=== PATIENT | male | born 1985 | race Caucasian/White ===

== ENCOUNTER 2018-07-13 09:37 | Outpatient (CLI) | payer OTHER, SELFPAY ==
[2018-07-13 11:33] LABS: Cholesterol 277 mg/dL (50-200); Glucose 94 mg/dL (70-100); HDL Cholesterol 43 mg/dL (40-60); LDL CHOLESTEROL 209 mg/dL (<100); Triglyceride 141 mg/dL (30-150)
== END 2018-07-13 09:57 ==
PROVIDERS: PCP Family Medicine; Visit Provider Family Medicine
DX: Z00.00 Encounter for general adult medical examination without abnormal findings (principal)
CPT/HCPCS: 36415; 80061; 82947; 83721

== ENCOUNTER 2019-03-13 16:59 | Emergency (ER) | payer OTHER, SELFPAY ==
[2019-03-13 17:25] VITALS: BP 147/105; PULSE 109; RESP 16; TEMP 36.5; O2SAT 96
--- NOTE | 2019-03-13 17:27 | W.ED.GENAD ---
Discharge Plan Disposition Patient Disposition: HOME Condition: Good Discharge Details Chief Complaint: Sorethroat Clinical Impression: URI (upper respiratory infection), Pharyngitis Primary Care Provider: Michael Woods ED Provider: Elliott Fernandez Home Meds and New Rx's Prescriptions: No Action No Known Home Meds RF: 0 Discharge Instructions Instructions: Pharyngitis (ED) Additional Instructions: Your strep test is negative. I suspect the cause of your sore throat and symptoms are most likely a virus. Please make sure to be drinking plenty fluids throughout the day, take Tylenol Motrin as needed for pain. If you notice any worsening of your symptoms, or any new symptoms such as vomiting, diarrhea, fever, chills, shortness of breath, chest pain, numbness, weakness, or fainting , please return immediately to the emergency department for reevaluation. Please follow up with your primary care provider as soon as possible for reassessment and reevaluation. As always, it was a pleasure participating in your medical care today. Referrals: Michael Woods. [Primary Care Provider] - Medical Decision Making This is a pleasant 33-year-old male with no significant past medical history who presents today for evaluation of sore throat for the last 2 to 3 days. No concerning red flags of headache or neck pain, no clinical evidence of meningitis. Mild tonsillar exudates are noted. No significant cervical lymphadenopathy, no evidence of peritonsillar abscess. We will evaluate for strep, and reassess. [place] is on the differential but notably less likely due to the absence of significant fatigue. 5:51 PM Strep test is negative. Suspect viral upper respiratory infection. Recommend Tylenol, Motrin fluids. Discussed red flags which to return. I have extensively reviewed the treatment plan and discharge instructions with the patient. I have addressed all patient concerns at this time. The patient was made aware of what symptoms to monitor for that would warrant a return to the emergency department. Discussed the plan with the patient, they demonstrate verbal understanding and agreement with our assessment and plan at this time. HPI General Date/Time Provider Initiated Documentation: 03/13/19 16:59. HPI Narrative: This is a 33-year-old male with no significant past medical history who presents for evaluation of sore throat. Patient states that for the last 2 to 3 days he has had a mild sore throat, achiness, fatigue. Throat pain has been worsening over the last 24 hours. He denies any headache, chest pain, shortness of breath. Multiple other sick contacts at home with similar symptoms. He denies any recorded temperature but does state that he felt warm. He has no other complaints at this time. No other modifying factors. No severe debilitating fatigue or abdominal pain. Related Data Home Medications Medication Instructions Recorded Confirmed Unknown [No Known Home Meds] 04/13/18 03/13/19 Allergies Allergy/AdvReac Type Severity Reaction Status Date / Time No Known Allergies Allergy Verified 03/13/19 17:28 General Stated Complaint: Sorethroat SHAHEED: 4 Review of Systems Review of Systems All systems reviewed & are unremarkable except as noted in HPI and below PFSH Surgical History (Updated 05/02/18 @ 14:35 by [employer] [place]) Tooth extraction WISDOM TEETH REMOVAL Vasectomy Family History Father Diabetes Paternal Grandfather Heavy smoker Cardiac abnormality Maternal Grandmother Heart failure Daughter No problems noted. Daughter No problems noted. Social History (Updated 07/16/18 @ 12:01 by Maria Ines Goldstein) Smoking/Tobacco Use Status: Former Tobacco Use Alcohol Intake: current Alcohol Intake frequency: a few times a week Alcohol type: beer Substance use type: does not use What type of physical activity do you participate in: walking and bicycling Duration: < 15 minutes/day Frequency: 1-2 times per week Special raimundo needs: No Do you feel safe at home: Yes Do you feel safe in your relationship?: Yes Exam Narrative Exam Narrative: 1.Const: Well-nourished, Well-developed, appearing stated age 2.Eyes: PERRL, no conjunctival injection, and symmetrical lids. 3.ENT: Atraumatic external nose and ears. Moist MM. Neck: Symmetric, trachea midline, No thyromegaly. Patient demonstrates good movement of cervical neck. There is no nuchal rigidity, no nuchal tenderness. Patient is able to flex the neck without any difficulty or significant pain. Negative Kernig's and Brudzinski sign. Mild erythema in the posterior oropharynx, small amounts of tonsillar exudates noted primarily on the right tonsil. 4.CVS: +S1/S2, No murmurs or gallops. Peripheral pulses 2+ and equal in all extremities. Brisk capillary refill in all extremities. 5.RESP: Unlabored respiratory effort. Clear to auscultation bilaterally. No wheezes rales or rhonchi 6.GI: Soft, Nontender/Nondistended, No hepatosplenomegaly. No guarding or rebound. 7.MSK: Normocephalic/Atraumatic, Extremities w/o deformity or ttp No cyanosis or clubbing, Normal movement of all extremities 8.Skin: Warm, Dry. No rashes or lesions. 9.Neuro: honey extractor II-XII grossly intact. Sensation grossly intact, no focal neurologic deficits. 10.Psych: (AAO) x3. Appropriate mood and affect Course Vital Signs Temperature 36.5 C 03/13/19 17:25 Pulse 109 H 03/13/19 17:25 Respiratory Rate 16 03/13/19 17:25 Blood Pressure 147/105 H 03/13/19 17:25 Pulse Oximetry 96 03/13/19 17:25 Temperature 36.5 C 03/13/19 17:25 Temperature Source Skin 03/13/19 17:25 Pulse 109 H 03/13/19 17:25 Respiratory Rate 16 03/13/19 17:25 Blood Pressure 147/105 H 03/13/19 17:25 Blood Pressure Position Sitting 03/13/19 17:25 Pulse Oximetry 96 03/13/19 17:25 Oxygen Delivery Method Room Air 03/13/19 17:25 Oxygen Flow Rate 0 03/13/19 17:25 Pain Level 5 03/13/19 17:25
[2019-03-13 17:53] VITALS: BP 147/105; PULSE 109; RESP 16; TEMP 36.5; O2SAT 96
== END 2019-03-13 17:57 | disposition home or self-care (01) ==
PROVIDERS: Emergency Provider Student in an Organized Health Care Education/Training Program; PCP Family Medicine
DX: J06.9 Acute upper respiratory infection, unspecified (principal); J02.8 Acute pharyngitis due to other specified organisms
CPT/HCPCS: 87880; 99282; 87081

== ENCOUNTER 2020-05-26 01:41 | Outpatient (CLI) | payer OTHER, SELFPAY ==
[2020-05-26 12:28] LABS: CREATININE 0.94 mg/dL (0.70-1.30); Potassium 4.6 mmol/L (3.5-5.1)
== END 2020-05-26 02:01 ==
PROVIDERS: Nurse Practitioner; PCP Family Medicine
DX: I10 Essential (primary) hypertension (principal)
CPT/HCPCS: 36415; 82565; 84132

== ENCOUNTER 2020-11-25 02:58 | Outpatient (CLI) | payer OTHER, BC, SELFPAY ==
[2020-11-25 13:15] LABS: Calculated LDL 181 mg/dL (<100); Cholesterol 245 mg/dL (<200); Glucose 89 mg/dL (74-106); HDL Cholesterol 41 mg/dL (40-60); Triglyceride 115 mg/dL (<150)
== END 2020-11-25 02:59 | disposition home or self-care (01) ==
LOC: LOS 02:59
PROVIDERS: PCP Family Medicine; Visit Provider Family Medicine
DX: E78.5 Hyperlipidemia, unspecified (principal); R73.9 Hyperglycemia, unspecified
CPT/HCPCS: 36415; 80061; 82947

== ENCOUNTER 2020-12-12 08:58 | Emergency (ER) | payer OTHER, BC, SELFPAY ==
--- NOTE | 2020-12-12 09:00 | W.ED.GENAD ---
Discharge Plan Disposition Patient Disposition: HOME Condition: Stable Discharge Details Clinical Impression: Fever, Nausea and vomiting Primary Care Provider: Michael Woods. ED Provider: Celina Gonzalez Home Meds and New Rx's Prescriptions: New ciprofloxacin HCl [Cipro] 500 mg tablet 500 mg PO BID 7 Days Qty: 14 RF: 0 metronidazole [Flagyl] 500 mg tablet 500 mg PO TID 7 Days Qty: 21 RF: 0 prochlorperazine maleate [Compazine] 10 mg tablet 10 mg PO TID PRN (Reason: nausea and vomiting) Qty: 7 RF: 0 Continued lisinopril 20 mg tablet 20 mg PO DAILY Qty: 90 RF: 3 Discharge Instructions Instructions: Fever in Adults (ED), Acute Nausea and Vomiting (ED) Additional Instructions: At this point in time, your fever and vomiting may be due to a foodborne illness. Usually you experience diarrhea with this, so be sure to drink lots of fluids and get plenty of rest. Your prescriptions have been sent electronically to your pharmacy. Call the pharmacy to make sure your prescriptions are ready before pickup. Take the prescriptions as directed. Your blood work today noted that your sodium level was low. This could be due to your lisinopril, so it is advised that you have your sodium level rechecked and to discuss with your primary care doctor if you should switch to a different blood pressure medication. Your blood work and CAT scan also noted that you had some evidence of fatty liver. Fatty liver in general is usually due to excess calories, high cholesterol, alcohol use, etc. Be sure to eat a healthy balanced diet. Follow-up with your primary care doctor for recheck of your liver enzymes. Return to the emergency department with any worsening or new concerning symptoms if you develop persistent fevers, persistent vomiting, abdominal pain or any other concerns. Discharge Data Discharge Date/Time-TO BE ENTERED AT DEPARTURE: 12/12/20 13:21 Discharge Physician: Celina Gonzalez Medical Decision Making 09 -- 35-year-old male with a previous history of food poisoning presents with nausea and vomiting for the past few days. Denies any abdominal pain. Heart rate on arrival 130s, decreased to 103 on recheck. Afebrile here. Patient appears comfortable and nontoxic. His abdomen is soft and nontender. Differential diagnosis includes gastroenteritis, gastritis, peptic ulcer. Do not see an indication for imaging at this time as he has no complaint of pain and abdomen nontender. Will place an IV, obtain screening labs, give a bolus IV fluids, Pepcid, Zofran IV and GI cocktail reassess. 1100 -- Labs reviewed. Normal white blood cell count. Bands 8. Sodium 127. Chloride 96. AST minimally elevated at 56. ALT minimally elevated at 94. Lipase normal. Patient reassessed and he states his nausea is improved and he feels generally better but complains of some mild headache. Recheck temp 100.7. Pulse 104. Will give a dose of Toradol, another liter of IV fluids and check a Covid swab. Case discussed with hospitalist Dr. Tai regarding Bands of 8 and whether would require admission - considering patient's pain and fever, recommends a CT scan. The fact that patient is improving, likely would not require admission but can be treated with PO cipro/flagyl if no other acute findings on CT and symptoms improve. Also recommends switching his lisinopril to another antihypertensive due to his hyponatremia. 1230 -- CT notes diffuse fatty infiltration of the liver with tiny esophageal hiatal hernia but no other acute findings. Covid negative. Patient reassessed and he feels much better and feels good to go home. Recheck temp is 99.3. Recheck heart rate mid to high 90s. Patient appears much improved. He was able to drink fluids and eat crackers without any further vomiting. Discussed that although he has no diarrhea, in the setting of symptoms started after eating food associated with fever and vomiting, will treat for potential foodborne illness. Disposition decision made weighing the risks and benefits of hospitalization versus outpatient treatment, the risk for further decompensation, and the patient's wishes. He is advised to return here immediately with any worsening symptoms for reevaluation. Also discussed recommendation to switch his lisinopril to a different antihypertensive but he is declining and states he will follow up with his primary care doctor for this. Advised to follow-up with his primary care doctor for reevaluation and for recheck of his sodium and liver enzymes. Medical Records Medical records reviewed: Yes I reviewed the patient's medical records. Imaging Data Radiologic Study: Radiologist's impression: CT Abdomen And Pelvis With Contrast Exam date and time: 12/12/2020 11:28 AM Age: 35 years old Clinical indication: Vomiting TECHNIQUE: Imaging protocol: Computed tomography of the abdomen and pelvis with contrast. Contrast material: OMNIPAQUE 350; Contrast volume: 100 ml; Contrast route: INTRAVENOUS (IV); COMPARISON: No relevant prior studies available. FINDINGS: Mediastinal space: Tiny esophageal hiatal hernia. Liver: The diffuse fatty infiltration of the liver. Gallbladder and bile ducts: Normal. No calcified stones. No ductal dilation. Pancreas: Normal. No ductal dilation. Spleen: Normal. No splenomegaly. Adrenal glands: Normal. No mass. Kidneys and ureters: Normal. No hydronephrosis. Stomach and bowel: Unremarkable. No obstruction. No mucosal thickening. Appendix: No evidence of appendicitis. Intraperitoneal space: Unremarkable. No free air. No significant fluid collection. Vasculature: Unremarkable. No abdominal aortic aneurysm. Lymph nodes: Unremarkable. No enlarged lymph nodes. Urinary bladder: Unremarkable as visualized. Reproductive: Unremarkable as visualized. Bones/joints: Unremarkable. No acute fracture. Soft tissues: Unremarkable. IMPRESSION: 1. No acute findings. 2. Diffuse fatty infiltration of the liver 3. Tiny esophageal hiatal hernia. Lab Data Lab results reviewed: Yes I reviewed the patient's lab results. Labs: Laboratory Tests Range/Units 12/12/20 12/12/20 12/12/20 09:13 09:13 11:05 WBC (4.4-10.8) 10^3/uL 6.30 RBC (4.36-5.78) 10^6/uL 4.65 Hgb (13.5-17.5) g/dL 13.7 Hct (40.0-50.0) % 41.0 MCV (80-95) fL 88.2 MCH (27.0-33.0) pg 29.5 MCHC (32.0-36.0) % 33.4 RDW (11.8-14.1) % 11.8 Plt Count (130-400) 10^3/uL 191 MPV (8.0-11.0) fL 9.4 Immature Gran % See Differential Neutrophils % 81.0 Band Neutrophils % 8 Lymphocytes % 8.0 Monocytes % 3.0 Eosinophils % 0.0 Basophils % 0.0 Nucleated RBC % % 0 Absolute Neutrophils (1.2-6.7) 10^3/uL 5.61 Absolute Lymphocytes (1.2-3.4) 10^3/uL 0.50 L Absolute Monocytes (0.1-0.8) 10^3/uL 0.19 Absolute Eosinophils (0.0-0.7) 10^3/uL 0.00 Absolute Basophils (0.0-0.2) 10^3/uL 0.00 RBC Morphology Normal Sodium (136-145) mmol/L 127 L Potassium (3.5-5.1) mmol/L 3.7 Chloride (98-107) mmol/L 96 L Carbon Dioxide (21.0-32.0) mmol/L 26.8 Anion Gap (3-11) mmol/L 4.2 BUN (7-18) mg/dL 11 Creatinine (0.70-1.30) mg/dL 1.2 Estimated GFR/1.73 m2 (mL/min/1.73m2) >= 60.00 Glucose (74-106) mg/dL 119 H Calcium (8.5-10.1) mg/dL 8.7 Total Bilirubin (0.2-1.0) mg/dL 0.5 AST (15-37) U/L 56 H ALT (16-63) U/L 94 H Alkaline Phosphatase (46-116) U/L 93 Total Protein (6.4-8.2) g/dL 8.5 H Albumin (3.4-5.0) g/dL 3.9 Lipase (73-393) U/L 158 COVID-19 Source Nasal/nares HPI General Mode of arrival: ambulatory. Date/Time Provider Initiated Documentation: 12/12/20 09:00. Limitations to Documentation: no limitations. Information obtained by: patient. HPI Narrative: Patient is a 35-year-old male with no significant past medical history presents for nausea and vomiting over the past few days. Patient states he has felt hot and cold chills at times with a T-max of 100.9 yesterday. Patient states he has had food poisoning in the past and states this feels similar to that. He states he ate [employer] 2 days ago for lunch and 4 hours later developed hot and cold chills followed by nausea and vomiting. He states he vomited a total of 2 times which is mainly consisted of food and this morning had dry heaves. He denies any diarrhea and states he had a small normal bowel movement yesterday. He denies any fever this morning. He states his last dose of Tylenol was yesterday at 4 PM. He denies any known exposure to Covid, recent travel, recent antibiotics, abdominal pain or urinary symptoms. Related Data Home Medications Medication Instructions Recorded Confirmed lisinopril 20 mg tablet 20 mg PO DAILY #90 tab 07/03/20 12/12/20 ciprofloxacin HCl [Cipro] 500 mg PO BID 7 Days #14 tab 12/12/20 metronidazole [Flagyl] 500 mg PO TID 7 Days #21 tab 12/12/20 prochlorperazine maleate 10 mg PO TID PRN #7 tab 12/12/20 [Compazine] Previous Rx's Medication Instructions Recorded lisinopril 20 mg tablet 20 mg PO DAILY #90 tab 07/03/20 ciprofloxacin HCl [Cipro] 500 mg PO BID 7 Days #14 tab 12/12/20 metronidazole [Flagyl] 500 mg PO TID 7 Days #21 tab 12/12/20 prochlorperazine maleate 10 mg PO TID PRN #7 tab 12/12/20 [Compazine] Allergies Allergy/AdvReac Type Severity Reaction Status Date / Time No Known Allergies Allergy Verified 12/12/20 09:06 General SHAHEED: 4 Review of Systems All systems reviewed & are unremarkable except as noted in HPI and below Constitutional Constitutional: Reports as per HPI, Denies chills, Reports fatigue, Reports fever(s) and Reports malaise Eyes Eyes: Denies blurry vision ENT Ears, Nose, Mouth, and Throat: Denies dizziness, Denies sore throat and Denies throat swelling Cardiovascular Cardiovascular: Denies chest pain and Denies dyspnea Respiratory Respiratory: Denies cough and Denies dyspnea Gastrointestinal Gastrointestinal: Denies abdominal pain, Denies diarrhea and Reports vomiting Genitourinary Genitourinary: Denies hematuria and Denies dysuria Musculoskeletal Musculoskeletal: Denies back pain and Denies numbness Integumentary/Breasts Skin/Breast: Denies lesions and Denies rash Neurologic Neurologic: Denies dizziness, Denies localized weakness and Denies numbness Endocrine Endocrine: Reports fatigue Allergic/Immunologic Allergic/Immunologic: Denies throat swelling [facility] Medical History (Updated 12/12/20 @ 15:38 by Celina Gonzalez DO) HTN (hypertension) Obesity Surgical History Tooth extraction WISDOM TEETH REMOVAL Vasectomy Family History (Updated 12/08/20 @ 08:18 by Torri Moore) Father Diabetes Paternal Grandfather Heavy smoker Cardiac abnormality Maternal Grandmother Heart failure Daughter No problems noted. Daughter No problems noted. Mother No problems noted. Social History (Updated 12/08/20 @ 08:17 by Torri Moore) Smoking/Tobacco Use Status: Former Tobacco Use Second Hand Exposure: No Smoking risk assessment performed?: Yes Alcohol Intake: current Alcohol Intake frequency: a few times a week Alcohol type: beer Drug use: Never Substance use type: does not use Caregiver/Support person: No Household members: spouse and children Housing: house Communication Needs: None Do you need help understanding health information?: Never Pets and animals: Yes Sexually active: Yes Do you think of yourself as: straight/heterosexual Current gender identity: male What is your relationship status?: How often do you talk on the phone with friends or family?: twice per week How often do you get together with friends or relatives?: twice per week Do you belong to any clubs or organized social groups?: no Panel score (0-1 are the most socially isolated patients): 2 What type of physical activity do you participate in: walking and bicycling Duration: < 15 minutes/day Frequency: 1-2 times per week Special raimundo needs: No Seatbelt use: always Helmet use: Yes Helmet use: sometimes Drive intox or ride w/intox otr flatbed company truck driver: No Do you feel safe at home: Yes Do you feel safe in your relationship?: Yes Exam Const General: cooperative, healthy appearing and no acute distress HENMT Head: normal to inspection Face and sinus: normal facial exam Eyes General: appearance normal, both eyes and all related structures EOM: EOM intact bilaterally Neck Neck: normal visual inspection and No submandibular swelling Lymphatic: no lymphadenopathy noted Chest Chest: normal inspection of the chest and no tenderness Resp Effort & Inspection: normal respiratory effort and able to speak in complete sentences Auscultation: clear to auscultation bilaterally Cardio Rate: regular rate Rhythm: regular rhythm GI Inspection: normal to inspection Palpation: soft, not firm, not rigid and nontender Auscultation: normal bowel sounds Skin General skin exam: no rashes or lesions noted Neuro General: patient alert, patient awake and patient oriented x3 Cognition: normal cognition Speech: speech normal Motor: muscle tone normal throughout Sensory Exam: no sensory deficits noted Extrem General: normal to inspection, full ROM, capillary refill normal, no calf tenderness bilaterally and no edema Psych Appearance: grossly normal Mental Status: mental status grossly normal Speech and Movement: speech and movement normal Affect: normal affect
[2020-12-12 09:03] VITALS: BP 124/70; PULSE 133; RESP 20; TEMP 36.6; O2SAT 100
[2020-12-12 09:22] LABS: Abs Immature Grans 0.02 10^3/uL (0.0-0.06); HGB 13.7 g/dL (13.5-17.5); MCH 29.5 pg (27.0-33.0); MCHC 33.4 % (32.0-36.0); MCV 88.2 fL (80-95); MPV 9.4 fL (8.0-11.0); Nucleated RBC 0 %; Platelet Count 191 10^3/uL (130-400); RBC 4.65 10^6/uL (4.36-5.78); RDW 11.8 % (11.8-14.1); RDW-SD 37.9 fL
[2020-12-12 09:23] VITALS: PULSE 106
[2020-12-12] MEDS: Normal Saline 1,000 ML 1000 ML IV ×2 (09:34→11:10)
[2020-12-12 09:35] LABS: ALT 94 U/L (16-63); AST 56 U/L (15-37); Albumin 3.9 g/dL (3.4-5.0); Alkaline Phosphatase 93 U/L (46-116); Anion Gap 4.2 mmol/L (3-11); BUN 11 mg/dL (7-18); Bilirubin, Total 0.5 mg/dL (0.2-1.0); CO2 26.8 mmol/L (21.0-32.0); CREATININE 1.2 mg/dL (0.70-1.30); Calcium 8.7 mg/dL (8.5-10.1); Chloride 96 mmol/L (98-107); Glucose 119 mg/dL (74-106); Lipase 158 U/L (73-393); Potassium 3.7 mmol/L (3.5-5.1); Sodium 127 mmol/L (136-145); Total Protein 8.5 g/dL (6.4-8.2)
[2020-12-12 09:39] LABS: Absolute Monocyte Count 0.19 10^3/uL (0.1-0.8); Absolute Neutrophil Count 5.61 10^3/uL (1.2-6.7); Bands % 8
[2020-12-12 09:40] LABS: Diff Comment Manual Differential; RBC Morphology Normal
[2020-12-12] MEDS: FAMOTIDINE 20 MG/50 ML BAG 200 MG IVPB (09:43)
[2020-12-12] MEDS: Ondansetron 4 MG/2 ML VIAL IVP (09:44)
[2020-12-12 10:57] VITALS: BP 151/84; PULSE 104; RESP 18; TEMP 38.2; O2SAT 97
[2020-12-12] MEDS: Ketorolac 30 MG/ML VIAL IVP (11:10)
[2020-12-12 11:15] LABS: Source Nasal/Nares
--- NOTE | 2020-12-12 11:15 | DI.CT_ITS ---
Exam(s) CT ABDOMEN PELVIS W EXAM: CT ABDOMEN PELVIS W CLINICAL HISTORY: fever, vomiting, r/o acute process TECHNIQUE: Imaging Protocol: Axial computed tomography images with coronal and sagittal reformatted images were created and reviewed CONTRAST MATERIAL: Intravenous: Omnipaque 350 Contrast volume:100 mL Oral: No COMPARISON: No exams were available for comparison FINDINGS: ABDOMEN: Lung Bases: Normal where visualized. There does appear to be a small hiatal hernia. Liver: There is diffuse decreased attenuation of the liver consistent with fatty infiltration. The l iver measures 23 cm in length. No measurable mass. Portal, Superior Mesenteric, and Splenic Veins: Unremarkable. Gallbladder and Biliary Tract: No radiodense calculus or dilation. Pancreas: Normal density, no abnormal calcifications or inflammatory process. Spleen: Normal. Adrenals: No masses seen. Kidneys: Normal size, contour and axis. No radiodense stones or obstructive uropathy. No masses seen. Abdominal Aorta: Abdominal portion non-dilated. Bowel: No obstruction or bowel wall thickening. Appendix is unremarkable. Peritoneal Cavity: No ascites, collection or mesenteric inflammatory response. No free air. Lymph Nodes: Within normal limits. Bones: Within normal limits for the patient's age. Soft Tissues: Unremarkable. PELVIS: Bladder: Symmetric distention, no gross wall thickening. Reproductive Organs: Unremarkable as visualized. Lymph Nodes: Within normal limits. Bones: Within normal limits for the patient's age. IMPRESSION: 1. No acute abdominal or pelvic process. 2. Hepatomegaly and hepatic steatosis. RADIATION DOSE DELIVERED: 1,107.69mGy.cm Total DLP DATA REPOSITORY: All CT scans at this facility are submitted to the National Radiology Data Registry (NRDR) Dose Index Registry (DIR) with the [employer] (A[employer]). RADIATION OPTIMIZATION: All CT scans at this facility use at least one of these dose optimization te chniques: automated exposure control; mA and/or kV adjustment per patient size (includes targeted exa ms where dose is matched to clinical indication); or iterative reconstruction.
[2020-12-12] MEDS: Omnipaque 350 MG/ML 100 ML BTL IJ (11:55)
[2020-12-12] MEDS: Normal Saline - Diluent 50 ML VIAL IV (11:57)
[2020-12-12] MEDS: Normal Saline Flush 10 ML SYR IVP (11:58)
[2020-12-12 12:08] LABS: COVID-19 PCR Negative (Negative)
--- NOTE | 2020-12-12 12:22 | DI.VRAD_ITS ---
Addendum created by Grace Ortiz MD on 12/12/2020 12:33:17 PM EDT: Addendum: Advertising Editor dictation error in the IMPRESSION section. Missing words in bold. IMPRESSION: 1. No acute findings. 2. Diffuse fatty infiltration of the liver 3. Tiny esophageal HIATAL HERNIA Initial report created on 12/12/2020 12:22:22 PM EDT: PROCEDURE INFORMATION: Exam: CT Abdomen And Pelvis With Contrast Exam date and time: 12/12/2020 11:28 AM Age: 35 years old Clinical indication: Vomiting TECHNIQUE: Imaging protocol: Computed tomography of the abdomen and pelvis with contrast. Contrast material: OMNIPAQUE 350; Contrast volume: 100 ml; Contrast route: INTRAVENOUS (IV); COMPARISON: No relevant prior studies available. FINDINGS: Mediastinal space: Tiny esophageal hiatal hernia. Liver: The diffuse fatty infiltration of the liver. Gallbladder and bile ducts: Normal. No calcified stones. No ductal dilation. Pancreas: Normal. No ductal dilation. Spleen: Normal. No splenomegaly. Adrenal glands: Normal. No mass. Kidneys and ureters: Normal. No hydronephrosis. Stomach and bowel: Unremarkable. No obstruction. No mucosal thickening. Appendix: No evidence of appendicitis. Intraperitoneal space: Unremarkable. No free air. No significant fluid collection. Vasculature: Unremarkable. No abdominal aortic aneurysm. Lymph nodes: Unremarkable. No enlarged lymph nodes. Urinary bladder: Unremarkable as visualized. Reproductive: Unremarkable as visualized. Bones/joints: Unremarkable. No acute fracture. Soft tissues: Unremarkable. IMPRESSION: 1. No acute findings. 2. Diffuse fatty infiltration of the liver 3. Tiny esophageal Dictated and Authenticated by: Grace Ortiz MD. Ordering:MICHAEL Patrick MD
[2020-12-12 12:26] VITALS: BP 135/76; PULSE 100; RESP 18; TEMP 37.7; O2SAT 98
[2020-12-12] MEDS: Ciprofloxacin 500 MG TAB PO (13:16)
[2020-12-12] MEDS: Prochlorperazine 10 MG TAB 30 MG PO (13:16)
[2020-12-12] MEDS: metroNIDAZOLE 500 MG TAB PO (13:16)
[2020-12-12 13:29] VITALS: PULSE 100; RESP 14; TEMP 37.4
--- NOTE | 2020-12-12 13:51 | NUR.NOTE ---
Nursing Note: Patient's called stating that the medication that was dispensed to her on discharge was labeled with the wrong patient name. Dr. Gonzalez spoke with the , and explained the error of the mislabeling. She understood. Dr. Gonzalez stated she felt that it was she who labeled the medication with the wrong label. Jacqueline Willis
== END 2020-12-12 13:21 | disposition home or self-care (01) ==
PROVIDERS: Emergency Provider Physician Assistant; PCP Family Medicine
DX: R50.9 Fever, unspecified (principal); R11.2 Nausea with vomiting, unspecified; Z20.822 Contact with and (suspected) exposure to COVID-19
CPT/HCPCS: 36415; 80053; 83690; 87635; 96361; 96374; 96375; 99285; 74177; 85025; 99284; J1885; J2405; J3490

== ENCOUNTER 2022-08-02 08:39 | Outpatient (CLI) | payer BC, SELFPAY ==
[2022-08-02 12:55] LABS: ALT 53 U/L (16-63); AST 25 U/L (15-37); Albumin 4.2 g/dL (3.4-5.0); Alkaline Phosphatase 85 U/L (46-116); Anion Gap 8.7 mmol/L (3-11); BUN 13 mg/dL (7-18); Bilirubin, Total 0.4 mg/dL (0.2-1.0); CO2 28.3 mmol/L (21.0-32.0); Calcium 9.4 mg/dL (8.5-10.1); Calculated LDL 181 mg/dL (<100); Chloride 100 mmol/L (98-107); Cholesterol 246 mg/dL (<200); Estimated GFR 99.41 (mL/min/1.73m2); Glucose 101 mg/dL (74-106); HDL Cholesterol 47 mg/dL (40-60); Potassium 4.2 mmol/L (3.5-5.1); Sodium 137 mmol/L (136-145); Total Protein 8.7 g/dL (6.4-8.2); Triglyceride 93 mg/dL (<150)
[2022-08-02 13:45] LABS: Lab Add On Test DONE
[2022-08-02 19:02] LABS: Estimated Average Glucose 108 mg/dL; Hemoglobin A1C 5.4 % (<5.7)
[2022-08-03 11:04] LABS: Hepatitis C Ab w Rflx HCV PCR Negative (Negative)
[2022-08-03 11:21] LABS: Lyme Ab w Rflx to Lyme Confirm Negative (Negative)
[2022-08-03 13:40] LABS: Albumin g/dL 4.6 g/dL (3.6-5.2); Total Protein 8.3 g/dL (6.3-8.2)
== END 2022-08-02 08:40 | disposition home or self-care (01) ==
LOC: LOS 08:39
PROVIDERS: PCP Family Medicine; Referring Provider Family Medicine; Visit Provider Family Medicine
DX: E78.5 Hyperlipidemia, unspecified (principal); R53.83 Other fatigue; R10.9 Unspecified abdominal pain; E88.09 Other disorders of plasma-protein metabolism, not elsewhere classified; R73.09 Other abnormal glucose; Z11.59 Encounter for screening for other viral diseases
CPT/HCPCS: 36415; 80053; 80061; 86803; 83036; 84165; 86618

== ENCOUNTER 2024-03-14 04:15 | Outpatient (CLI) | payer BC, SELFPAY ==
[2024-03-14 13:01] LABS: Anion Gap 9.6 mmol/L (3-11); BUN 14 mg/dL (7-18); CO2 26.4 mmol/L (21.0-32.0); CREATININE 0.8 mg/dL (0.70-1.30); Calcium 9.3 mg/dL (8.5-10.1); Calculated LDL 194 mg/dL (<100); Chloride 105 mmol/L (98-107); Cholesterol 255 mg/dL (<200); Estimated GFR 116.17 (mL/min/1.73m2); Glucose 94 mg/dL (74-106); HDL Cholesterol 40 mg/dL (40-60); Hemoglobin A1C 5.6 % (<5.7); Potassium 4.5 mmol/L (3.5-5.1); Sodium 141 mmol/L (136-145); TSH (W/Ref FT4) 2.91 uIU/mL (0.36-3.74); Triglyceride 108 mg/dL (<150)
== END 2024-03-14 04:16 | disposition home or self-care (01) ==
LOC: LOS 04:15
PROVIDERS: PCP Family Medicine; Visit Provider Nurse Practitioner Family
DX: Z00.00 Encounter for general adult medical examination without abnormal findings (principal); E78.5 Hyperlipidemia, unspecified; I10 Essential (primary) hypertension; E66.3 Overweight
CPT/HCPCS: 36415; 80048; 80061; 83036; 84443

== ENCOUNTER 2025-03-11 08:44 | Outpatient (CLI) | payer BC, SELFPAY ==
[2025-03-11 12:57] LABS: Anion Gap 7.2 mmol/L (3-11); BUN 12 mg/dL (7-18); CO2 29.8 mmol/L (21.0-32.0); Calcium 8.9 mg/dL (8.5-10.1); Calculated LDL 178 mg/dL (<100); Chloride 101 mmol/L (98-107); Cholesterol 237 mg/dL (<200); Estimated GFR 115.45 (mL/min/1.73m2); Glucose 98 mg/dL (74-106); HDL Cholesterol 36 mg/dL (>or=40); Potassium 4.2 mmol/L (3.5-5.1); Sodium 138 mmol/L (136-145); Triglyceride 116 mg/dL (<150)
== END 2025-03-11 08:45 | disposition home or self-care (01) ==
PROVIDERS: PCP Family Medicine; Referring Provider Family Medicine; Visit Provider Family Medicine
DX: E87.1 Hypo-osmolality and hyponatremia (principal); E78.5 Hyperlipidemia, unspecified; Z13.220 Encounter for screening for lipoid disorders
CPT/HCPCS: 36415; 80048; 80061; 83695